=== PATIENT | female | born 1955 | race Caucasian/White ===

== ENCOUNTER 2017-08-30 10:33 | Emergency (ER) | payer OTHER ==
--- NOTE | 2017-08-30 13:57 | RAD ---
Indication: Left hip pain. 2 views of left hip and an AP view of the pelvis is reviewed. Pelvic ring is intact. Degenerative changes of left upper noted. No fracture is noted. Sacroiliac joints are unremarkable. IMPRESSION: Degenerative changes of left hip.
--- NOTE | 2017-08-30 13:58 | RAD ---
Indication: Left knee pain. 2 views of left knee demonstrates joint space narrowing in the lateral compartment with valgus deformity. Degenerative changes of the patellofemoral joint are noted. IMPRESSION: Degenerative changes lateral compartment left knee. Degenerative changes of the patellofemoral joint.
--- NOTE | 2017-08-30 13:58 | RAD ---
INDICATION: Left foot injury. TECHNIQUE: 3 views of the left foot were obtained. FINDINGS: There is diffuse soft tissue swelling. No fracture is seen. Joint spaces appear maintained. IMPRESSION: SOFT TISSUE SWELLING, NO FRACTURE IS SEEN. IF THE PATIENT'S SYMPTOMS PERSIST RECOMMEND FOLLOW-UP IMAGING.
[2017-08-30] MEDS ORDERED: Morphine PF AMP (1 MG/ML)* 10 MG/10 ML AMP IM ONE (14:28)
[2017-08-30] MEDS ORDERED: Morphine VIAL* 10 MG/ML 1 ML VIAL IM ONE (14:53)
[2017-08-30] MEDS ORDERED: Morphine VIAL* 4 MG/ML VIAL (1 ml vial) IV ONE (14:59)
--- NOTE | 2017-08-30 17:50 | ED ---
Alfred Childress Tenzin, scribed for Anton Cano MD on 08/30/17 at 1440 . Lower Extremity - HPI Summary HPI Summary: Pt is a 62 years old female presenting to the ED complaining of pain in left knee, foot and hip from a slippery fall on water yesterday. Pt rated the pain after the fall at 10/10 in severity. Pt reports that she has a chronic left knee pain. She notes that her left knee got bent when she fell yesterday and after that got swollen. Pt denies fever or chills. She took 20 mg of oxycodone prior to arrival. She does not note any aggravating factor. Pt reports that the hip and feet is more painful. She also reported that she will go into surgery for her left knee next month. She is using crutches right now. - History of Current Complaint Chief Complaint: EDExtremityLower Stated Complaint: LT LEG INJURY Time Seen by Provider: 08/30/17 12:49 Hx Obtained From: Patient Onset of Pain: Post Accident Severity Initially: Severe Pain Intensity: 10 Pain Scale Used: 0-10 Numeric Location: Radiates To - Left knee radiating to left hip and foot. Associated Signs And Symptoms: Positive: Swelling - left knee. Aggravating Factor(s): Nothing Alleviating Factor(s): Nothing - Allergies/Home Medications Allergies/Adverse Reactions: Allergies Allergy/AdvReac Type Severity Reaction Status Date / Time No Known Allergies Allergy Verified 06/28/17 14:44 Home Medications: Home Medications fentaNYL PATCH 25 MCG/HR* [Duragesic PATCH 25 Mcg/Hr*] 37.5 mcg TRANSDERM Q72H 08/30/17 [History Confirmed 08/30/17] oxyCODONE TAB* [Roxycodone TAB 5 mg*] 10 mg PO TID PRN 08/30/17 [History Confirmed 08/30/17] PMH/Surg Hx/FS Hx/Imm Hx Endocrine/Hematology History: Denies: Hx Diabetes Cardiovascular History: Denies: Hx Hypertension, Hx Pacemaker/ICD Respiratory History: Denies: Hx Asthma Sensory History: Denies: Hx Hearing Aid Psychiatric History: Denies: Hx Panic Disorder - Surgical History Surgery Procedure, Year, and Place: CERVICAL FUSION. BILATERAL KNEE ARTHROSCOPIES. BILATERAL SHOULDER ROTATOR CUFF REPAIRS Infectious Disease History: No Infectious Disease History: Denies: Traveled Outside the [place] in Last 30 Days - Family History Known Family History: Positive: Other - Pt denies any relevant family history. - Social History Alcohol Use: Weekly Alcohol Amount: 2 drinks per week Substance Use Type: Reports: None Smoking Status (MU): Current Every Day Smoker Type: Cigarettes Amount Used/How Often: 1/2 PPD Review of Systems Negative: Fever, Chills Positive: Edema - left knee. , Other - pain in left knee, left foot and left hip. All Other Systems Reviewed And Are Negative: Yes Physical Exam - Summary Physical Exam Summary: Appearance: The patient is well-nourished in no acute distress and in no acute pain. Skin: The skin is warm and dry and skin color reflects adequate perfusion. HEENT: The head is normocephalic and atraumatic. The pupils are equal and reactive. The conjunctivae are clear and without drainage. Nares are patent and without drainage. Mouth reveals moist mucous membranes and the throat is without erythema and exudate. The external ears are intact. The ear canals are patent and without drainage. The tympanic membranes are intact. Neck: the neck is supple with full range of motion and non-tender. There are no carotid bruits. There is no neck vein distension. Respiratory: Chest is non-tender. Lungs are clear to auscultation and breath sounds are symmetrical and equal. Cardiovascular: Heart is regular rate and rhythm. There is no murmur or rub auscultated. There is no peripheral edema and pulses are symmetrical and equal. Abdomen: The abdomen is soft and non-tender. There are normal bowel sounds heard in all four quadrants and there is no organomegaly palpated. Musculoskeletal: Pt's left knee has a surgical scar with edema and warm to touch. Left ankle has edema and tender to pronation. No ligamnetous laxity. Mild tenderness over left sciatic area. Neurological: Patient is alert and oriented to person, place and time. The patient has symmetrical motor strength in all four extremities. Cranial nerves are grossly intact. Deep tendon reflexes are symmetrical and equal in all four extremities. Psychiatric: The patient has an appropriate affect and does not exhibit any anxiety or depression. Triage Information Reviewed: Yes Vital Signs On Initial Exam: Initial Vitals Temp Pulse Resp BP Pulse Ox 98.7 F 88 16 128/82 96 08/30/17 10:48 08/30/17 10:48 08/30/17 10:48 08/30/17 10:48 08/30/17 10:48 Vital Signs Reviewed: Yes Diagnostics - Vital Signs Vital Signs Temp Pulse Resp BP Pulse Ox 08/30/17 10:48 98.7 F 88 16 128/82 96 - Laboratory Lab Statement: Any lab studies that have been ordered have been reviewed, and results considered in the medical decision making process. - Radiology KNEE XRAY Radiology Interpretation Completed By: Radiologist - IMPRESSION: Degenerative changes lateral compartment left knee. Degenerative changes of the patellofemoral joint. Dr. Cano reviewed the report. Hip/Pelvis XRAY Radiology Interpretation Completed By: Radiologist - IMPRESSION: Degenerative changes of left hip. Dr. Cano reviewed the report. FOOT XRAY Radiology Interpretation Completed By: Radiologist - IMPRESSION: SOFT TISSUE SWELLING, NO FRACTURE IS SEEN. IF THE PATIENT'S SYMPTOMS PERSIST RECOMMEND FOLLOW-UP IMAGING. Dr. Cano reviewed the report. Lower Extremity Course/Dx - Course Course Of Treatment: Ms. Moran presented to the emergency department after a fall yesterday. She has had a lot of chronic problems with her left knee which usually does not bend and was forced to bend during the fall. She also wrenched her left ankle and low back and is complaining of some left sciatic pain. Her left knee was grossly swollen and mildly warm to the touch and she also had left ankle swelling with no ligamentous laxity. Her left knee was swollen and tender and difficult to evaluate. X-ray showed no fractures and she was immobilized with a knee immobilizer and a gel cast and she currently already has crutches that she knows how to use. I recommended follow-up with Dr. Lancaster whom she had already intended to follow up with for her knee. I also recommended standard treatment of ice and elevation and anti-inflammatories. - Diagnoses Provider Diagnoses: Knee sprain, Ankle sprain Discharge - Sign-Out/Discharge Documenting (check all that apply): Discharge/Admit/Transfer - discharge - Discharge Plan Condition: Stable Disposition: HOME Patient Education Materials: Ankle Sprain (ED), Knee Sprain (ED) Referrals: Mikhail Kruger MD [Primary Care Provider] - Neva Lancaster MD [Medical Doctor] - 3 Days Additional Instructions: Follow up with your primary care physician in three days. Return to the emergency department for any new or worsening symptoms. - Billing Disposition and Condition Condition: STABLE Disposition: Home The documentation as recorded by the Alfred mills Tenzin accurately reflects the service I personally performed and the decisions made by me, Anton Cano MD.
[2017-08-30 17:55] VITALS: BP 145/87
== END 2017-08-30 17:54 | disposition home or self-care (01) ==
LOC: ED 10:33
DX: S83.92XA Sprain of unspecified site of left knee, initial encounter (principal); S93.402A Sprain of unspecified ligament of left ankle, initial encounter; W19.XXXA Unspecified fall, initial encounter; Y92.9 Unspecified place or not applicable; G89.29 Other chronic pain; M17.12 Unilateral primary osteoarthritis, left knee; M16.12 Unilateral primary osteoarthritis, left hip; F17.210 Nicotine dependence, cigarettes, uncomplicated
CPT/HCPCS: 96372; 99282; J2270; J2274